=== PATIENT | male | born 1975 | race Two or more races ===

== ENCOUNTER 2020-02-16 09:55 | Emergency (ER) | payer SELFPAY ==
[~2020-02-16] VITALS: Ht 172.7 cm; Wt 94.8 kg
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
--- NOTE | 2020-02-16 10:02 | NUR ---
[employer] WAS ON SCENE PER TYLER
--- NOTE | 2020-02-16 10:10 | NUR ---
DR POLLARD AT BEDSIDE FOR EVAL
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
[2020-02-16] MEDS ORDERED: HYDROCODONE/APAP 5/325MG 1 EACH TABLET ONE (10:22)
[2020-02-16] MEDS ORDERED: HYDROCODONE/APAP 5/325MG 1 EACH TABLET PO ONE (10:30)
--- NOTE | 2020-02-16 11:34 | NUR ---
Patient discharged to home in stable condition. Written and verbal after care instructions given. Patient verbalizes understanding of instruction. Pt ambulatory with a steady gait
[2020-02-16 11:37] VITALS: BP 115/87
== END 2020-02-16 11:40 | disposition home or self-care (01) ==
LOC: ER 10:00
DX: S00.31XA Abrasion of nose, initial encounter (principal); R51 Headache; Z88.0 Allergy status to penicillin; Y00.XXXA Assault by blunt object, initial encounter; Y93.89 Activity, other specified; Y92.89 Other specified places as the place of occurrence of the external cause; Y99.0 Civilian activity done for income or pay
CPT/HCPCS: 70450-TC; 70486-TC